=== PATIENT | male | born 1985 | race Caucasian/White ===

== ENCOUNTER 2022-12-05 11:54 | Inpatient (IN) | payer SELFPAY ==
[2022-12-05 11:55] VITALS: BP 129/91; PULSE 85; RESP 16; TEMP 36.7; O2SAT 100; BMI 17.9
--- NOTE | 2022-12-05 12:09 | EX.ED.SAOD ---
HPI <BLAYNE Urrutia - Last Filed: 12/05/22 13:15> History of Present Illness Chief Complaint: Substance Abuse Narrative Narrative: Patient presenting today requesting to detox from fentanyl. He reports that he has been using fentanyl for the past month after previously being addicted to pain pills. He reports that he snorts the fentanyl, he denies any injection drug use. He denies any other substance use. He reports that he tried to detox by himself this weekend but his withdrawal symptoms were too severe and included nausea, abdominal cramping, anxiety. He was on Subutex in the past. He has never been to a detox center. He reports that he uses about 1/4 g to 1/2 gram daily. He denies a PMH of any chronic health conditions. PFSH <BLAYNE Urrutia - Last Filed: 12/05/22 13:15> PFSH Home Medications NK 12/05/22 [History Last Taken Unknown] Allergy/AdvReac Type Severity Reaction Status Date / Time naloxone [From Narcan] AdvReac Intermediate Upset Verified 12/05/22 11:55 Stomach Social History Smoking Status: Current every day smoker tobacco type: cigarettes ROS <BLAYNE Urrutia - Last Filed: 12/05/22 13:15> ROS ED Constitutional Constitutional ED: Denies chills or fever(s) Cardiovascular Cardiovascular: Denies chest pain or palpitations Respiratory/Chest Respiratory/Chest: Denies cough or dyspnea Gastrointestinal Gastrointestinal: Denies abdominal pain, nausea or vomiting Musculoskeletal Musculoskeletal: Denies arthralgias or myalgias Integumentary Denies abscess or rash Neurologic Neurologic: Denies weakness Psychiatric Psychiatric: Denies anxiety, depression, suicidal ideation or suicidal thoughts EXAM <BLAYNE Urrutia - Last Filed: 12/05/22 13:15> Physical Exam Const Vital Signs: 12/05/22 11:55 Temperature 98.1 F Temperature Source Temporal Pulse Rate 85 Respiratory Rate 16 Blood Pressure 129/91 H Blood Pressure Mean 103 Pulse Ox 100 Oxygen Delivery Method Room Air Positive well nourished, well developed and no apparent distress General Appearance ED: well developed HEENT Reports normocephalic and head/scalp atraumatic Mouth ED: Yes moist mucous membranes normal Eyes PERRL and EOMs intact bilaterally Neck full ROM and supple Chest Wall inspection of chest normal Resp normal respiratory effort and clear to auscultation bilaterally Cardio regular rate and regular rhythm GI soft to palpation, non-tender, non-distended and no masses Back/Spine normal ROM and normal to inspection Extremity normal to inspection and full ROM Neuro oriented x3, CN's II-XII intact bilaterally, moves all extremities, no focal motor deficits and no sensory deficits noted Sensorium / Orientation: awake and alert Psych mental status grossly normal and thought process normal Skin no rashes or lesions noted and no wounds <Dr. Jalen Mitchell DO - Last Filed: 12/05/22 15:32> Physical Exam Const Vital Signs: 12/05/22 11:55 Temperature 98.1 F Temperature Source Temporal Pulse Rate 85 Respiratory Rate 16 Blood Pressure 129/91 H Blood Pressure Mean 103 Pulse Ox 100 Oxygen Delivery Method Room Air MDM <BLAYNE Urrutia - Last Filed: 12/05/22 13:15> MDM MDM Narrative Medical decision making narrative: Patient presenting requesting detox from fentanyl. He denies other substance use. He last used at 6 AM. He is well-appearing and in no acute distress, he reports that he does not feel he is withdrawing at this time. He has never been to a detox program before. labs will be obtained and I will speak with the hospitalist regarding admission. Interventions / MDM: Differential diagnosis: Opiate dependence, opiate withdrawal Diagnosis considered but do not suspect: N/A My EKG interpretation: N/A Imaging independently reviewed and interpreted by myself: N/A External documents reviewed: N/A Test considered but not ordered:N/A ED course: Attending note: Patient seen and evaluated with carver hand. I perform my own [id number] evaluation. I agree with the plan of work-up. Referred from [facility] for detox. History of opioid dependence, he is on Subutex and was able to get off a year ago. He states the last month relapse after meeting a new friend. He has been snorting fentanyl daily. He did have severe abdominal cramps with withdrawal symptoms. He states had around 3 AM he had leftover fentanyl and used it around 6 AM. Denies alcohol. Denies other recreational drugs. He has not gone through any detox programs. Denies suicidal homicidal ideations. Laboratory screenings were sent. Vitals are stable. Discussed with hospitalist Dr. Perez for admission. Re-evaluation: stable Disposition discussed with patient/family/significant other: Case discussed with consulting clinician: Hospitalist This note was generated with Network18 dictation software. It may contain incorrect words, spelling, and punctuation that were not noted in checking the note before signing. Lab Data Attestation: I reviewed the patient's lab results. Labs: Laboratory Results - last 24 hr 12/05/22 12:20 WBC 11.1 H RBC 5.16 Hgb 14.8 Hct 44.9 MCV 87.0 MCH 28.7 MCHC 33.0 RDW Std Deviation 39.8 RDW Coeff of Wong 12.3 Plt Count 317 MPV 9.8 Immature Gran % (Auto) 0.400 Neut % (Auto) 75.1 H Lymph % (Auto) 16.8 L [place] % (Auto) 5.7 Eos % (Auto) 1.3 Baso % (Auto) 0.7 Absolute Neuts (auto) 8.4 H Absolute Lymphs (auto) 1.87 Nucleated RBC % 0 Ur Drug Screen Comment <Dr. Jalen Mitchell, DO - Last Filed: 12/05/22 15:32> MDM MDM Narrative Medical decision making narrative: Patient presenting requesting detox from fentanyl. He last used at 6 AM. He is well-appearing and in no acute distress, he reports that he does not feel he is withdrawing at this time. He has never been to a detox program before. labs will be obtained and I will speak with the hospitalist regarding admission. Interventions / MDM: Differential diagnosis: Opiate dependence, opiate withdrawal Diagnosis considered but do not suspect: N/A My EKG interpretation: N/A Imaging independently reviewed and interpreted by myself: N/A External documents reviewed: N/A Test considered but not ordered:N/A ED course: Attending note: Patient seen and evaluated with carver hand. I perform my own [id number] evaluation. I agree with the plan of work-up. Referred from [facility] for detox. History of opioid dependence, he is on Subutex and was able to get off a year ago. He states the last month relapse after meeting a new friend. He has been snorting fentanyl daily. He did have severe abdominal cramps with withdrawal symptoms. He states had around 3 AM he had leftover fentanyl and used it around 6 AM. Denies alcohol. Denies other recreational drugs. He has not gone through any detox programs. Denies suicidal homicidal ideations. Laboratory screenings were sent. Vitals are stable. Discussed with hospitalist Dr. Perez for admission. Re-evaluation: stable Disposition discussed with patient/family/significant other: Case discussed with consulting clinician: Hospitalist This note was generated with Network18 dictation software. It may contain incorrect words, spelling, and punctuation that were not noted in checking the note before signing. Lab Data Labs: Laboratory Results - last 24 hr 12/05/22 12:20 WBC 11.1 H RBC 5.16 Hgb 14.8 Hct 44.9 MCV 87.0 MCH 28.7 MCHC 33.0 RDW Std Deviation 39.8 RDW Coeff of Wong 12.3 Plt Count 317 MPV 9.8 Immature Gran % (Auto) 0.400 Neut % (Auto) 75.1 H Lymph % (Auto) 16.8 L [place] % (Auto) 5.7 Eos % (Auto) 1.3 Baso % (Auto) 0.7 Absolute Neuts (auto) 8.4 H Absolute Lymphs (auto) 1.87 Nucleated RBC % 0 Ur Drug Screen Comment Discharge Plan Dx/Rx/DC Orders Clinical Impression: Opioid withdrawal, Opioid dependence Disposition Disposition: Acute Care Hospital [facility] Discharge Date/Time: 12/05/22 13:16
[2022-12-05 12:37] LABS: Absolute Lymphocyte Count 1.87 X10^3/uL (0.83-4.51); Absolute Neutrophil Count 8.4 X10^3/uL (2.0-7.7); Basophil# 0.08 X10^3/uL; Basophil% 0.7 % (0-1); Eosinophil# 0.14 X10^3/uL; Eosinophils% 1.3 % (0-5); Hematocrit 44.9 % (40-54); Hemoglobin 14.8 g/dL (13.0-16.5); Lymphocyte # 1.87 X10^3/ul (0.83-4.51); Lymphocyte % 16.8 % (19-41); Mean Corpuscular Hgb 28.7 pg (27.0-32.0); Mean Platelet Vol. 9.8 fl (6.2-12.0); Monocyte# 0.63 X10^3/uL; Monocyte% 5.7 % (0-10); NRBC Flagged by Analyzer 0 % (0-5); Neutrophil # 8.35 X10^3/uL (2.7-7.7); Neutrophil % 75.1 % (47-70); Platelet Count 317 K/mm3 (150-450); RBC Distribution Width CV 12.3 % (11.6-14.6); RBC Distribution Width SD 39.8 fl (35.1-43.9); Red Blood Count 5.16 M/mm3 (4.6-6.2); White Blood Count 11.1 K/mm3 (4.4-11.0)
[2022-12-05 12:45] LABS: Anion Gap 3 (5-15); BUN 10 mg/dL (7-18); BUN/Creat Ratio 12.5 RATIO (10-20); Calcium,Total 9.2 mg/dL (8.5-10.1); Chloride 102 mmol/L (98-107); EST Glomerular Filtration Rate 115 mL/min (>60); Est Glom Filt Rate - Afr Amer 139 mL/min (>60); Glucose 90 mg/dL (74-106); Potassium 3.7 mmol/L (3.5-5.1); Sodium Level 138 mmol/L (136-145)
--- NOTE | 2022-12-05 12:52 | NURSING ---
med surg kacie opiod dependence
--- NOTE | 2022-12-05 12:59 | CM.ED ---
Addendum entered by Karen Friend 12/05/22 13:04: Patient is listed as self-pay. Pt reports his Medicaid lapsed but he went to [facility] in [facility] this morning to reapply for medicaid. Pt indicated he also notified them of wanting retroactive payment. Karen ARANDA, ROUTE DELIVERY MANAGER Original Note: Social Work SW introduced self and role to patient. Pt reports he is here for detox from fentanyl with last use approx. 6am. Pt reports he relapsed about a month ago. Pt reports he is seeing Camille Frye NP and was recommended to come here. Pt has been on subutex in the past and reports it has worked well for him. SW provided support. Mayco Márquez coordinator notified of patient admission. Karen ARANDA, ROUTE DELIVERY MANAGER
[2022-12-05 13:00] VITALS: BP 131/87; PULSE 84; RESP 17; TEMP 36.6; O2SAT 99
[2022-12-05 13:01] LABS: Alcohol, Blood (Medical)-Serum < 3.0 mg/dL; Amphetamine Urine VISTA POSITIVE (<1000 ng/mL); Barbiturate Urine VISTA NEGATIVE (< 200 ng/mL); Benzodiazepine Urine VISTA NEGATIVE (< 200 ng/mL); Cocaine Urine VISTA NEGATIVE (< 300 ng/mL); Ecstacy Urine VISTA POSITIVE (< 500 ng/mL); Methadone Urine VISTA NEGATIVE (< 300 ng/mL); PCP Urine VISTA NEGATIVE (< 25 ng/mL); THC Urine VISTA POSITIVE (< 50 ng/mL); Vista UDS pH Range 7
[2022-12-05 13:58] VITALS: BP 124/85; PULSE 71; RESP 16; TEMP 37.3; O2SAT 100
[2022-12-05 14:01] VITALS: BMI 17.7
[2022-12-05] MEDS: cloNIDine HCl 0.1 MG Tablet PO (14:21)
[2022-12-05] MEDS: Methocarbamol 750 MG Tablet PO (14:21)
[2022-12-05] MEDS: Ondansetron 8 MG Tablet PO (14:21)
--- NOTE | 2022-12-05 17:02 | HP.PCM.HOS_ITS ---
HPI - General General Date of Admission: 12/05/22 Date of Service: 12/05/22 Chief Complaint: Acute opiate withdrawal HPI Narrative BENNIE CAMARILLO, is a 37 M who presents to the emergency room at [facility] requesting services for acute opiate withdrawal, patient is a daily user of fentanyl, he snorts the fentanyl and does not inject. Patient denies any other illicit drug usage, he denies any alcohol usage. Patient complains of feeling anxious and having muscle pains as well as malaise today. Labs obtained in the emergency room was abnormal for white blood cell count of 11.1, chemistry profile was unremarkable, patient's tox screen was positive for amphetamines, MDMA, and cannabinoids. Patient will be admitted to [place] [id number], orders were entered using the opiate detox order set and addiction order set, patient will be seen in consultation by addiction social worker. Patient denies any chronic medical problems such as hypertension, diabetes, or heart disease. [facility] Home Medications NK 12/05/22 [History Last Taken Unknown] Allergy/AdvReac Type Severity Reaction Status Date / Time naloxone [From Narcan] AdvReac Intermediate Upset Verified 12/05/22 11:55 Stomach Social History Smoking Status: Current every day smoker tobacco type: cigarettes ROS Constitutional Constitutional: Reports chills and malaise; Denies anorexia, change in weight, fever(s), night sweats or weakness Eyes Eyes: Denies blurry vision, change in vision, discharge from eye(s) or eye pain Cardiovascular Cardiovascular: Denies chest pain, claudication, dyspnea on exertion, edema or palpitations Respiratory/Chest Respiratory/Chest: Denies cough, hemoptysis, productive cough, shortness of breath at rest or shortness of breath with exertion Gastrointestinal Gastrointestinal: Denies abdominal pain, constipation, diarrhea, dyspepsia, hematemesis, hematochezia, melena, nausea or vomiting Genitourinary Genitourinary: Denies dysuria, hematuria, urinary frequency, urinary hesitancy, urinary incontinence or urinary urgency Musculoskeletal Musculoskeletal: Reports arthralgias; Denies back pain, joint pain, joint stiffness, joint swelling, myalgias or neck pain Neurologic Neurologic: Denies abnormal gait, abnormal speech, confusion, disequilibrium, dizziness, focal weakness, headache(s), loss of vision, numbness, other visual disturbances, paresthesias, syncope or tingling Psychiatric Psychiatric: Denies anxiety, cognitive impairment, depression, irritability, mood swings or suicidal ideation Endocrine Endocrinology: Denies change in body appearance, cold intolerance, excessive sweating, heat intolerance, polydipsia or polyuria Hematologic/Lymphatic Hematologic/Lymphatic: Denies none, anemia, easy bleeding, easy bruising or lymphadenopathy Allergic/Immunologic Allergic/Immunologic: Denies rhinitis, urticaria, eczemia or asthma Vital Signs Vital Signs Vital Signs: 12/05/22 11:55 12/05/22 13:00 12/05/22 13:58 Temperature 98.1 F 97.9 F 99.1 F Temperature Source Temporal Temporal Oral Pulse Rate 85 84 71 Respiratory Rate 16 17 16 Respiratory Effort Blood Pressure 129/91 H 131/87 H 124/85 H Blood Pressure Mean 103 101 98 Blood Pressure Source Monitor Blood Pressure Position Semi-Fowlers Blood Pressure Location Left Arm Pulse Ox 100 99 100 Oxygen Delivery Method Room Air Room Air Room Air 12/05/22 14:11 Temperature Temperature Source Pulse Rate Respiratory Rate Respiratory Effort Normal Non-Labored Blood Pressure Blood Pressure Mean Blood Pressure Source Blood Pressure Position Blood Pressure Location Pulse Ox Oxygen Delivery Method Weight Weight: 45.4 kg Body Mass Index (BMI) 17.7 Physical Exam Const alert, oriented x3, no apparent distress and healthy appearing General Appearance: cooperative, well kempt and well developed Orientation / Consciousness: awake, oriented to person, oriented to place and oriented to time HEENT normocephalic, head/scalp atraumatic, hearing grossly normal bilaterally and moist oral mucous membranes Eyes PERRL, EOMs intact bilaterally and conjunctivae normal Neck supple, no JVD, thyroid normal and no carotid bruits General: trachea midline Resp normal respiratory effort, no retractions, no use of accessory muscles and clear to auscultation bilaterally Auscultation: Negative for rales, rhonchi or wheezes Cardio regular rate, regular rhythm, S1 normal heart sound, S2 normal heart sound, no murmurs, no rub and no gallops GI normal to inspection, nondistended, normoactive bowel sounds, soft to palpation, non-tender and non-distended Extremity no clubbing, cyanosis or edema Skin no rashes or lesions noted General Skin Exam: no breakdown Neuro oriented x3, CN's II-XII intact bilaterally, moves all extremities, no focal motor deficits and no sensory deficits noted Sensorium / Orientation: awake, alert, oriented to person, oriented to place and oriented to time Speech: speech normal Psych affect normal Results Lab / Micro Data 12/05/22 12:20 12/05/22 12:20 Labs: Laboratory Results - last 24 hr 12/05/22 12:20: WBC 11.1 H, RBC 5.16, Hgb 14.8, Hct 44.9, MCV 87.0, MCH 28.7, MCHC 33.0, RDW Std Deviation 39.8, RDW Coeff of Wong 12.3, Plt Count 317, MPV 9.8, Immature Gran % (Auto) 0.400, Neut % (Auto) 75.1 H, Lymph % (Auto) 16.8 L, [place] % (Auto) 5.7, Eos % (Auto) 1.3, Baso % (Auto) 0.7, Absolute Neuts (auto) 8.4 H, Absolute Lymphs (auto) 1.87, Nucleated RBC % 0, Sodium 138, Potassium 3.7, Chloride 102, Carbon Dioxide 33.0 H, Anion Gap 3 L, BUN 10, Creatinine 0.80, Estim Creat Clear Calc 82.00, Est GFR (MDRD) Af Amer 139, Est GFR (MDRD) Non-Af 115, BUN/Creatinine Ratio 12.5, Glucose 90, Calcium 9.2, Urine Opiates Screen NEGATIVE, Urine Methadone Screen NEGATIVE, Ur Barbiturates Screen NEGATIVE, Ur Phencyclidine Scrn NEGATIVE, Ur Amphetamines Screen POSITIVE H, MDMA (Ecstasy) Screen POSITIVE H, U Benzodiazepines Scrn NEGATIVE, Urine Cocaine Screen NEGATIVE, U Cannabinoids Screen POSITIVE H, Ur Drug Screen Comment , Ethyl Alcohol < 3.0 Assessment & Plan Assessment/Plan (1) Opioid withdrawal: PLAN: Plan 1. Acute opiate withdrawal-again patient was admitted to [facility], orders were entered using the opiate detox and an addiction order sets, patient will be seen by addiction social worker and arranges will be made for follow-up treatment as an outpatient. #2 polysubstance abuse-complicates care, medical course, recovery, and prognosis #3 chronic opiate [id number] care, medical course, recovery, and prognosis Total clinical time spent by myself addressing patient's medical issues, reviewing all of his data, and collaborating with patient's care team: 55 minutes Charges/Coding Visit Charges Inpatient E&M: 07173 Init Hosp L2
[2022-12-05] MEDS: Gabapentin 300 MG Capsule PO (18:54)
[2022-12-05 20:59] VITALS: BP 123/83; PULSE 67; RESP 18; TEMP 36.7; O2SAT 100
[2022-12-05] MEDS: traZODone 100 MG Tablet PO (21:14)
[2022-12-05 21:44] VITALS: BP 115/69; PULSE 62; RESP 18; TEMP 36.8; O2SAT 97
[2022-12-05 21:51] VITALS: O2SAT 97
[2022-12-06 00:18] VITALS: BP 113/75; PULSE 75; RESP 18; TEMP 36.7; O2SAT 100
[2022-12-06 03:45] VITALS: BP 113/68; PULSE 78; RESP 18; TEMP 36.7; O2SAT 100
[2022-12-06] MEDS: Loperamide 2 MG Capsule PO ×2 (06:57→15:06)
[2022-12-06] MEDS: Ibuprofen 600 MG Tablet PO ×2 (06:58→18:45)
[2022-12-06] MEDS: Methocarbamol 750 MG Tablet PO ×3 (06:58→23:02)
[2022-12-06] MEDS: Gabapentin 300 MG Capsule PO ×2 (06:58→15:06)
[2022-12-06] MEDS: hydrOXYzine PAM 25 MG Capsule 50 MG PO ×2 (06:58→15:06)
[2022-12-06 08:30] VITALS: BP 108/72; PULSE 78; RESP 18; TEMP 36.8; O2SAT 100
[2022-12-06] MEDS: cloNIDine HCl 0.1 MG Tablet PO ×2 (09:02→18:45)
[2022-12-06] MEDS: Dicyclomine 10 MG Capsule 20 MG PO ×2 (11:00→18:46)
[2022-12-06] MEDS: Acetaminophen 500 MG Tablet PO (11:00)
--- NOTE | 2022-12-06 11:23 | ADDICTION ---
This securities underwriter met with PT to conduct ASAM, MSE, AUDIT assessments and to plan for d/c. PT A+Ox4 and participated actively. All assessments completed and placed in PT's chart. PT plans to f/u with [facility] for follow-up treatment services. PT did not indicate a need for transportation post d/c from [facility].
--- NOTE | 2022-12-06 14:22 | PN.HOSP_ITS ---
Reason for Visit Reason for Visit: Diagnoses Opioid use, unspecified with withdrawal (12/05/22) Subjective Subjective Patient was seen and examined today, he does not complain of nervousness or muscle pain today. Objective Data Objective Data Vital Signs: Vital Signs Temp Pulse Resp BP Pulse Ox O2 Del Method 98.2 F 78 18 108/72 100 Room Air 12/06/22 08:30 12/06/22 08:30 12/06/22 08:30 12/06/22 08:30 12/06/22 08:30 12/06/22 08:54 Oxygen Delivery Method Room Air Weight: 45.4 kg Body Mass Index (BMI) 17.7 Intake & Output: Intake and Output for Last 24 Hours 12/04/22 12/05/22 12/06/22 23:59 23:59 23:59 Intake Total 240 / 240 480 / 480 Balance 240 / 240 480 / 480 Medical Nutrition Assessment Dietitian: Malnutrition Criteria Met Start: 12/06/22 13:02 Freq: Status: Active Protocol: Document 12/06/22 13:03 SHAWN (Rec: 12/06/22 13:03 [id number]) Nutrition Malnutrition Evidence of Malnutrition Exists Yes Malnutrition (severe): Chronic Evidenced By Suboptimal Energy Intake ( Severe),Weight Loss (Severe), Physical Changes (Moderate) Clinical Problem Chronic Disease or Condition Related Malnutrition Etiology severe related to polysubstance abuse Signs/Symptoms as evidenced by 23% unintended weight loss in 1 month, <75% PO intake of estimated nutrition needs for 1 month, and moderate fat and muscle loss to orbital and temporal regions. Status Active Problem Recommendation Dietitian Recommendations/Changes Continue Regular diet and snacks 3x daily to optimize oral intakes. RD will order 118mL Ensure Compact TID with medpass Lab / Micro Data 12/05/22 12:20 12/05/22 12:20 Physical Exam Narrative alert, oriented x3, no apparent distress and healthy appearing General Appearance: cooperative, well kempt and well developed Orientation / Consciousness: awake, oriented to person, oriented to place and oriented to time HEENT normocephalic, head/scalp atraumatic, hearing grossly normal bilaterally and moist oral mucous membranes Eyes PERRL, EOMs intact bilaterally and conjunctivae normal Neck supple, no JVD, thyroid normal and no carotid bruits General: trachea midline Resp normal respiratory effort, no retractions, no use of accessory muscles and clear to auscultation bilaterally Auscultation: Negative for rales, rhonchi or wheezes Cardio regular rate, regular rhythm, S1 normal heart sound, S2 normal heart sound, no murmurs, no rub and no gallops GI normal to inspection, nondistended, normoactive bowel sounds, soft to palpation, non-tender and non-distended Extremity no clubbing, cyanosis or edema Skin no rashes or lesions noted General Skin Exam: no breakdown Neuro oriented x3, CN's II-XII intact bilaterally, moves all extremities, no focal motor deficits and no sensory deficits noted Sensorium / Orientation: awake, alert, oriented to person, oriented to place and oriented to time Speech: speech normal Psych affect normal Assessment & Plan Assessment/Plan (1) Opioid withdrawal: PLAN: Plan 1. Acute opiate withdrawal-continue present medications at this time, patient has plans for follow-up at an outpatient with a detox nurse practitioner #2 polysubstance abuse-complicates care, medical course, recovery, and prognosis #3 chronic opiate [id number] care, medical course, recovery, and prognosis Total clinical time spent by myself addressing patient's medical issues, r eviewing all of his data, and collaborating with patient's care team: 25 minutes Charges/Coding Visit Charges Inpatient E&M: 41988 [facility] Hosp L1
[2022-12-06 15:08] VITALS: BP 108/76; PULSE 66; RESP 16; TEMP 37.2; O2SAT 100
--- NOTE | 2022-12-06 15:41 | CHAPLAIN ---
Type of Pastoral Visit _x__ Initial Visit ___ Follow-up Visit ___ On-call Visit ___ General Patient Visit ___ Spiritual Assessment ___ Family Conference ___ Bereavement ___ Rapid Response ___ Code Blue ___ Other (describe below) Pastoral Care Referral From _x__ Patient ___ Family ___ Nurse ___ Physician ___ Clinical Laboratory Technologist ___ Drafter Structural ___ Other (describe below) Sacrament/Intervention _x__ Active listening ___ Anointing ___ Tenriism ___ Bereavement ___ Communion _x__ Kalpana exploration ___ _x__ Life review _x__ Prayer ___ Reconciliation ___ Sacrament of Sick _x__ Supportive presence ___ Wedding ___ Other (describe below) Pastoral Comments patient is eager to talk about his situation and readily admits that he made poor decision recently and relapsed in drug use after being clean for quite a long time; pt ended a relationship with girlfriend on Sunday and got admitted her for detox purposes; pt expresses over and over his guilt and disappointment in himself for this situation; pt is given support, listening, affirmation of desire to return to clean living and to his jobs; pt has family support but does not live near family; pt states he knows people that are clean and will help but is not very actively involved in other people's lives; pt believes in God and prays but does not participate in any samaritan services or have those resources; pt displays knowledge about what he needs but also believes he is strong enough to win this pyle; pt encouraged to seek relationships and resources to help himself; pt does have a good relationship with a counselor and will return to her for support; pt will continue to pursue greater dependence on God as well; pt welcomes prayer and expresses thanks for the visit; future visits are welcome
[2022-12-06 22:53] VITALS: BP 123/77; PULSE 86; RESP 18; TEMP 36.4; O2SAT 100
[2022-12-06] MEDS: traZODone 100 MG Tablet PO (23:02)
[2022-12-07 05:51] VITALS: BP 105/74; PULSE 64; RESP 18; TEMP 36.8; O2SAT 99
[2022-12-07] MEDS: Dicyclomine 10 MG Capsule 20 MG PO (06:01)
[2022-12-07] MEDS: Ibuprofen 600 MG Tablet PO (06:01)
[2022-12-07] MEDS: hydrOXYzine PAM 25 MG Capsule 50 MG PO (06:02)
[2022-12-07 08:59] VITALS: BP 113/69; PULSE 62; RESP 16; TEMP 37.2; O2SAT 100
[2022-12-07] MEDS: Gabapentin 300 MG Capsule PO (09:05)
[2022-12-07] MEDS: Methocarbamol 750 MG Tablet PO (09:05)
--- NOTE | 2022-12-07 10:12 | DCINST_ITS ---
Discharge Instructions Diet Discharge Diet: No restrictions Activity Discharge Activity: Return to Normal Activity Weight Bearing Status: Full weight bearing Follow Up Care Test Results: Test results from this visit will be discussed in further detail at your follow- up appointment, if applicable. Discharge Plan Admission Admit Date/Time: 12/05/22 12:16 Primary Reason for Your Visit: Opiate detox Attending Provider: John Perez Primary Care Provider: Care Physician,No Primary Instructions Additional Instructions / Restrictions: Follow-up with [facility] Discharge Orders/Prescriptions Prescriptions: No Action NK Referrals / Follow Up: Care Physician,No Primary [Primary Care Provider] - Disposition Disposition (needs filled in before D/C Order can be placed): Home, Self Care
--- NOTE | 2022-12-07 10:16 | PCM.DC.SUM ---
Providers Date of Admission: 12/05/22 Date of Discharge: 12/07/22 Primary Care Physician: No Primary Care Phys Reason For Visit: OPIATE DETOX Diagnosis Discharge Diagnosis (1) Opioid withdrawal: Status: Acute Code(s): F11.93 - Opioid use, unspecified with withdrawal Plan 1. Acute opiate withdrawal-continue present medications at this time, patient has plans for follow-up at an outpatient with a detox nurse practitioner #2 polysubstance abuse-complicates care, medical course, recovery, and prognosis #3 chronic opiate cyssc-Zoepkcei-dkxrvlyneht care, medical course, recovery, and prognosis Total clinical time spent by myself addressing patient's medical issues, reviewing all of his data, and collaborating with patient's care team: 25 minutes Medications at Discharge Home Medications NK 12/05/22 Hospital Course Operations None Procedures None Summary of Care Provided Minutes Spent on Discharge: 30 Hospital Course: This 37-year-old white male was seen in the emergency room at [facility] requesting services for detox from fentanyl. Tox screen obtained in the emergency room was positive for amphetamines, MDMA, and cannabinoids. Patient was admitted to [place] [address] using the order sets for opiate detox and addiction medicine, during his hospitalization, patient refused to take Subutex and had withdrawal symptoms controlled with as needed meds. Patient was seen by addiction social services manager, plans were made for follow-up as an outpatient at a detox facility without inpatient services. On 12/07/2022, patient was seen and examined: On examination he appeared in good health and spirits. Vital signs as documented. Skin warm and dry and without overt rashes. Neck without JVD, neck was supple, trachea midline, thyroid was normal. Lungs clear bilaterally, normal air movement was noted. Heart exam notable for regular rhythm, normal sounds and absence of murmurs, rubs or gallops. Abdomen unremarkable and without evidence of organomegaly, masses, or abdominal aortic enlargement. Bowel sounds are present, abdomen is not distended. Extremities nonedematous, no cyanosis was noted, no clubbing was noted. Neuro: Cranial nerves II through XII are grossly intact, no focal motor deficits were noted, sensation to light touch and pinprick intact, motor exam 5/5 throughout. Psych: Patient is alert and oriented x3, he does not appear anxious or depressed, he does not appear agitated. Patient appears stable for discharge on 12/07/2022. Medical Records Data Medical Nutrition Assessment Dietitian: Malnutrition Criteria Met Start: 12/06/22 13:02 Freq: Status: Active Protocol: Document 12/06/22 13:03 SHAWN (Rec: 12/06/22 13:03 LO [id number]) Nutrition Malnutrition Evidence of Malnutrition Exists Yes Malnutrition (severe): Chronic Evidenced By Suboptimal Energy Intake ( Severe),Weight Loss (Severe), Physical Changes (Moderate) Clinical Problem Chronic Disease or Condition Related Malnutrition Etiology severe related to polysubstance abuse Signs/Symptoms as evidenced by 23% unintended weight loss in 1 month, <75% PO intake of estimated nutrition needs for 1 month, and moderate fat and muscle loss to orbital and temporal regions. Status Active Problem Recommendation Dietitian Recommendations/Changes Continue Regular diet and snacks 3x daily to optimize oral intakes. RD will order 118mL Ensure Compact TID with medpass Weight / BMI Weight Weight: 45.4 kg Body Mass Index (BMI) 17.7 ABG / Lab / Microbiology Data 12/05/22 12:20 12/05/22 12:20 D/C Instructions Discharge Diet: No restrictions Weight Bearing Status: Full weight bearing Meaningful Use Info Meaningful Use Diagnoses (Choose all that apply): None applicable Discharge Plan Admission Admit Date/Time: 12/05/22 12:16 Primary Reason for Your Visit: Opiate detox Attending Provider: John Perez Primary Care Provider: Care Physician,No Primary Instructions Additional Instructions / Restrictions: Follow-up with [facility] Discharge Orders/Prescriptions Prescriptions: No Action NK Referrals / Follow Up: Care Physician,No Primary [Primary Care Provider] - Disposition Disposition (needs filled in before D/C Order can be placed): Home, Self Care Charges/Coding Visit Charges Inpatient E&M: [id number] Disch Hosp
== END 2022-12-07 11:00 | disposition home or self-care (01) | DRG 896 ==
LOC: ED 12:47 → MS3 12:56
PROVIDERS: Admitting Provider Internal Medicine; Emergency Provider Emergency Medicine; Visit Provider Internal Medicine
DX: F11.23 Opioid dependence with withdrawal (principal); E43 Unspecified severe protein-calorie malnutrition; Z68.1 Body mass index [BMI] 19.9 or less, adult; F19.19 Other psychoactive substance abuse with unspecified psychoactive substance-induced disorder; F17.210 Nicotine dependence, cigarettes, uncomplicated
CPT/HCPCS: 80048; 80307; 82077; 85025; 97802; 99283